=== PATIENT | female | born 1990 | race Two or more races ===

== ENCOUNTER 2019-10-21 17:26 | Emergency (ER) | payer BC, MEDICAID, OTHER, SELFPAY ==
[~2019-10-21] VITALS: Ht 167.6 cm; Wt 97.8 kg
[2019-10-21] MEDS ORDERED: SODIUM CHLORIDE 0.9% 1,000ML IVBOLUS ONE (18:30)
[2019-10-21] MEDS ORDERED: ONDANSETRON 2MG/ML, 2ML IVPush ONE (18:30)
[2019-10-21] MEDS ORDERED: SODIUM CHLORIDE FLUSH 10ML SYR IVF ONE (18:30)
[2019-10-21] MEDS ORDERED: FAMOTIDINE 20 MG/2 ML IVPush ONE (18:30)
[2019-10-21] MEDS ORDERED: ONDANSETRON 2MG/ML, 2ML ONE (18:45)
[2019-10-21] MEDS ORDERED: FAMOTIDINE 20 MG/2 ML ONE (18:45)
[2019-10-21 18:49] LABS: BASOPHILS # (AUTO) 0.05 x10^3/uL (0-0.1); BASOPHILS % (AUTO) 1 % (0-1); EOSINOPHILS % (AUTO) 1 % (1-7); LYMPHOCYTES # (AUTO) 2.78 x10^3/uL (1-3.4); LYMPHOCYTES % (AUTO) 33 % (22-44); MD NO; MEAN CORPUSCULAR HGB CONC 33.7 g/dL (32.4-35.8); MEAN CORPUSCULAR VOLUME 88.9 fL (80-100); MEAN PLATELET VOLUME 8.6 fL (7.4-10.4); MONOCYTES # (AUTO) 0.44 x10^3/uL (0.2-0.8); MONOCYTES % (AUTO) 5 % (2-9); NEUTROPHILS # (AUTO) 5.14 x10^3/uL (1.8-6.8); NEUTROPHILS % (AUTO) 60 % (42-75); PLATELET COUNT 322 x10^3/uL (130-400); RED CELL DISTRIBUTION WIDTH 13.5 % (9.6-15.2)
[2019-10-21 18:52] LABS: ALANINE AMINOTRANSFERASE 27 U/L (12-78); ALBUMIN 3.3 g/dL (3.4-5.0); ANION GAP 4 mmol/L (5-15); CALCIUM 8.1 mg/dL (8.5-10.1); CHLORIDE 112 mmol/L (98-107); CREATININE 0.72 mg/dL (0.55-1.02)
[2019-10-21 18:56] LABS: ALKALINE PHOSPHATASE 58 U/L (45-117); BILIRUBIN,TOTAL 0.4 mg/dL (0.2-1.0); TOTAL PROTEIN 7.4 g/dL (6.4-8.2)
[2019-10-21 19:04] LABS: MICROSCOPIC INDICATED
--- NOTE | 2019-10-21 19:07 | NUR ---
REPORT TO SHAWNEE GARY
--- NOTE | 2019-10-21 19:10 | NUR ---
assumed care of pt. report form Jailyn GARY. pt here for epigastric pain x2 days with nausea but denies vomiting. pt currently resting in position of comfort with fluids infusing. no family at bedside. no apparent resp. distres at this time will continue to monitor
[2019-10-21] MEDS ORDERED: MAALOX/HYOSCYAMINE/LIDOCAINE 45 ML BTL PO ONE (19:30)
--- NOTE | 2019-10-21 19:50 | NUR ---
pt reports that she has had no change in pain aftr meds. denies nausea. no vomiting. pt to be medicated with GI cocktail. pt made aware that she cannot drive after GI cocktail. pt vrebalized understanding and states that someone can pick her up. pt medicated per order. positioning for comfort. IV infusing
[2019-10-21] MEDS ORDERED: MAALOX/HYOSCYAMINE/LIDOCAINE 45 ML BTL ONE (19:53)
--- NOTE | 2019-10-21 20:20 | NUR ---
pt in RAD
[2019-10-21 20:44] VITALS: BP 118/71
--- NOTE | 2019-10-21 20:45 | NUR ---
pt resting in position of comfort. IV infusing. pt denies pain. no c/o at this time. updated on POC. awating test results
--- NOTE | 2019-10-21 21:08 | NUR ---
this pt was D/C by another RN
== END 2019-10-21 21:09 | disposition home or self-care (01) ==
LOC: ED 19:10
DX: K29.00 Acute gastritis without bleeding (principal); R10.13 Epigastric pain; R11.0 Nausea; R63.0 Anorexia; Z90.49 Acquired absence of other specified parts of digestive tract
CPT/HCPCS: 36415; 74176; 80053; 81001; 83690; 84703; 85025; 87086; 96361; 96374; 96375; 99284; J2405; J3490; J7030